=== PATIENT | male | born 1965 | race Caucasian/White ===

== ENCOUNTER → 2019-06-07 | Outpatient (CLI) | payer BC ==
[2019-06-07 10:31] LABS: EOS # 0.2 (0.04-0.40); HEMATOCRIT 48.9 % (42.0-52.0); HEMOGLOBIN 16.3 g/dL (13.5-18.0); LYMPH# 1.3 (1.50-4.00); MEAN CELL VOLUME 95 fl (78-100); MEAN CORPUSCULAR HEMOGLOBIN 32 pg (27-31); MEAN CORPUSCULAR HGB CONC 33 g/dL (33-37); MEAN PLATELET VOLUME 10.1 fl (7.4-10.4); MONO # 0.5 (0.20-0.80); NEU # 5.6 (1.40-6.50); PLATELET COUNT 373 K/mm3 (130-400); RED BLOOD COUNT 5.16 M/mm3 (4.20-5.60); RED CELL DISTRIBUTION WIDTH 14.2 % (11.5-14.5); WHITE BLOOD COUNT 7.6 K/mm3 (4.8-10.8)
[2019-06-07 10:33] LABS: POTASSIUM 3.9 mmol/L (3.5-5.1)
[2019-06-07 10:34] LABS: ALBUMIN 3.9 g/dL (3.5-5.0)
[2019-06-07 10:35] LABS: CALCIUM 8.8 mg/dL (8.3-10.5)
[2019-06-07 10:36] LABS: TOTAL PROTEIN 7.4 g/dL (6.4-8.3)
[2019-06-07 10:38] LABS: TOTAL BILIRUBIN 0.6 mg/dL (0.2-1.2)
== END ==
LOC: LAB 10:07
PROVIDERS: Physician Assistant
DX: Z12.5 Encounter for screening for malignant neoplasm of prostate (principal); Z13.220 Encounter for screening for lipoid disorders; Z76.89 Persons encountering health services in other specified circumstances; I82.409 Acute embolism and thrombosis of unspecified deep veins of unspecified lower extremity; I87.2 Venous insufficiency (chronic) (peripheral); I10 Essential (primary) hypertension; J30.2 Other seasonal allergic rhinitis; J01.90 Acute sinusitis, unspecified; B96.89 Other specified bacterial agents as the cause of diseases classified elsewhere; H66.93 Otitis media, unspecified, bilateral; F41.9 Anxiety disorder, unspecified; Z79.01 Long term (current) use of anticoagulants

== ENCOUNTER → 2020-01-24 | Outpatient (CLI) | payer BC ==
[2020-01-24 11:03] LABS: BASO # 0.1 (0.02-0.10); EOS # 0.3 (0.04-0.40); EOS % 3.5 % (0.0-4.0); HEMATOCRIT 48.1 % (42.0-52.0); HEMOGLOBIN 15.9 g/dL (13.5-18.0); LYMPH# 1.3 (1.50-4.00); MEAN CELL VOLUME 96 fl (78-100); MEAN CORPUSCULAR HEMOGLOBIN 32 pg (27-31); MEAN CORPUSCULAR HGB CONC 33 g/dL (33-37); MEAN PLATELET VOLUME 10.4 fl (7.4-10.4); MONO # 0.6 (0.20-0.80); NEU # 4.8 (1.40-6.50); PLATELET COUNT 360 K/mm3 (130-400); RED CELL DISTRIBUTION WIDTH 13.8 % (11.5-14.5); WHITE BLOOD COUNT 7.1 K/mm3 (4.8-10.8)
[2020-01-24 11:09] LABS: ALBUMIN 3.8 g/dL (3.5-5.0); POTASSIUM 4.1 mmol/L (3.5-5.1)
[2020-01-24 11:11] LABS: CALCIUM 8.4 mg/dL (8.3-10.5)
[2020-01-24 11:12] LABS: TOTAL PROTEIN 7.2 g/dL (6.4-8.3)
[2020-01-24 11:14] LABS: TOTAL BILIRUBIN 0.4 mg/dL (0.2-1.2)
[2020-01-24 11:18] LABS: MAGNESIUM 1.97 mg/dL (1.60-2.60)
[2020-01-24 11:24] LABS: D-DIMER 0.71 mg/L FEU (0.15-0.50)
== END ==
LOC: LAB 10:01
PROVIDERS: Physician Assistant
DX: I82.409 Acute embolism and thrombosis of unspecified deep veins of unspecified lower extremity (principal); I10 Essential (primary) hypertension

== ENCOUNTER → 2020-04-04 | Outpatient (CLI) | payer OTHER | LOC: RAD 09:10 | DX: R07.89 Other chest pain (principal) ==

== ENCOUNTER 2020-06-27 11:18 | Emergency (ER) | payer OTHER ==
[2020-06-27 12:12] LABS: BASO # 0.05 (0.02-0.10); EOS # 0.12 (0.04-0.40); EOS % 1.3 % (0.0-4.0); HEMATOCRIT 50.2 % (42.0-52.0); LYMPH# 1.64 (1.50-4.00); MEAN CELL VOLUME 94 fl (78-100); MEAN CORPUSCULAR HEMOGLOBIN 32 pg (27-31); MEAN CORPUSCULAR HGB CONC 34 g/dL (33-37); MEAN PLATELET VOLUME 9.8 fl (7.4-10.4); NEU # 6.56 (1.40-6.50); PLATELET COUNT 393 K/mm3 (130-400); RED BLOOD COUNT 5.35 M/mm3 (4.20-5.60); RED CELL DISTRIBUTION WIDTH 13.6 % (11.5-14.5)
[2020-06-27 12:20] LABS: POTASSIUM 3.7 mmol/L (3.5-5.1); SODIUM 138 mmol/L (136-145)
[2020-06-27 12:21] LABS: CALCIUM 9.2 mg/dL (8.3-10.5)
[2020-06-27 12:22] LABS: GLUCOSE 100 mg/dL (75-110); TOTAL PROTEIN 7.5 g/dL (6.4-8.3)
[2020-06-27 12:23] LABS: CARBON DIOXIDE 21 mmol/L (22-29)
[2020-06-27 12:27] LABS: AST-SGOT 22 U/L (5-34)
[2020-06-27 12:29] LABS: ALT/SGPT 39 U/L (0-55); LIPASE 21 U/L (8-78)
[2020-06-27 12:30] LABS: D-DIMER 0.39 mg/L FEU (0.15-0.50); PARTIAL THROMBOPLASTIN TIME 23.6 SECONDS (21.0-32.0); PROTHROMBIN TIME 12.4 SECONDS (9.0-12.0)
[2020-06-27 12:35] LABS: TROPONIN-I < 0.03 ng/mL (<0.030)
[2020-06-27 14:40] VITALS: BP 136/72
== END 2020-06-27 14:40 | disposition home or self-care (01) ==
LOC: ED 11:18
PROVIDERS: Nurse Practitioner
DX: F41.9 Anxiety disorder, unspecified (principal); Z91.14 Patient's other noncompliance with medication regimen; I10 Essential (primary) hypertension; Z86.711 Personal history of pulmonary embolism; Z88.8 Allergy status to other drugs, medicaments and biological substances; Z79.01 Long term (current) use of anticoagulants
CPT/HCPCS: J2060; J7030

== ENCOUNTER → 2020-08-27 | Outpatient (CLI) | payer OTHER ==
[2020-08-27 14:55] LABS: BASO # 0.09 (0.02-0.10); EOS # 0.21 (0.04-0.40); HEMATOCRIT 50.4 % (42.0-52.0); HEMOGLOBIN 17.2 g/dL (13.5-18.0); LYMPH# 2.23 (1.50-4.00); MEAN CELL VOLUME 94 fl (78-100); MEAN CORPUSCULAR HEMOGLOBIN 32 pg (27-31); MEAN CORPUSCULAR HGB CONC 34 g/dL (33-37); MEAN PLATELET VOLUME 9.2 fl (7.4-10.4); MONO # 0.82 (0.20-0.80); NEU # 7.29 (1.40-6.50); PLATELET COUNT 413 K/mm3 (130-400); RED BLOOD COUNT 5.38 M/mm3 (4.20-5.60); RED CELL DISTRIBUTION WIDTH 13.4 % (11.5-14.5); WHITE BLOOD COUNT 10.7 K/mm3 (4.8-10.8)
[2020-08-27 15:03] LABS: ALBUMIN 3.9 g/dL (3.5-5.0); POTASSIUM 3.9 mmol/L (3.5-5.1)
[2020-08-27 15:04] LABS: CALCIUM 9.2 mg/dL (8.3-10.5)
[2020-08-27 15:05] LABS: TOTAL PROTEIN 7.8 g/dL (6.4-8.3)
[2020-08-27 15:07] LABS: TOTAL BILIRUBIN 0.7 mg/dL (0.2-1.2)
[2020-08-27 15:13] LABS: MAGNESIUM 1.98 mg/dL (1.60-2.60)
== END ==
LOC: LAB 14:40
PROVIDERS: Physician Assistant
DX: E78.5 Hyperlipidemia, unspecified (principal); K90.9 Intestinal malabsorption, unspecified; R25.2 Cramp and spasm

== ENCOUNTER → 2020-10-22 | Outpatient (CLI) | payer BC ==
[2020-10-22 07:41] LABS: ALBUMIN 3.7 g/dL (3.5-5.0); POTASSIUM 3.8 mmol/L (3.5-5.1)
[2020-10-22 07:42] LABS: CALCIUM 9.2 mg/dL (8.3-10.5)
[2020-10-22 07:43] LABS: TOTAL PROTEIN 7.4 g/dL (6.4-8.3)
[2020-10-22 07:45] LABS: TOTAL BILIRUBIN 0.6 mg/dL (0.2-1.2)
[2020-10-22 07:50] LABS: MAGNESIUM 2.05 mg/dL (1.60-2.60)
== END ==
LOC: LAB 07:13
PROVIDERS: Physician Assistant
DX: K90.9 Intestinal malabsorption, unspecified (principal); R25.2 Cramp and spasm

== ENCOUNTER → 2021-01-01 | Outpatient (CLI) | payer BC ==
[2021-01-01 10:25] LABS: PROTHROMBIN TIME 14.9 SECONDS (9.0-12.0)
== END ==
LOC: LAB 09:16
PROVIDERS: Physician Assistant
DX: I82.409 Acute embolism and thrombosis of unspecified deep veins of unspecified lower extremity (principal)

== ENCOUNTER 2021-10-05 07:20 | Emergency (ER) | payer BC ==
[~2021-10-05] VITALS: Ht 185.4 cm; Wt 197.4 kg
[2021-10-05] MEDS ORDERED: KLONOPIN 1MG1 MG PO (07:56)
[2021-10-05] MEDS ORDERED: VALSARTAN160 M1 PO (07:56)
[2021-10-05] MEDS ORDERED: WARFARIN SODIUM4 MG PO (07:56)
[2021-10-05] MEDS ORDERED: MECLIZINE PO (07:56)
[2021-10-05 08:07] LABS: BASO # 0.06 K/mm3 (0.02-0.10); EOS # 0.16 K/mm3 (0.04-0.40); EOS % 2.1 % (0.0-4.0); HEMATOCRIT 48.5 % (42.0-52.0); HEMOGLOBIN 16.3 g/dL (13.5-18.0); MEAN CELL VOLUME 95 fl (78-100); MEAN CORPUSCULAR HEMOGLOBIN 32 pg (27-31); MEAN CORPUSCULAR HGB CONC 34 g/dL (33-37); MEAN PLATELET VOLUME 9.3 fl (7.4-10.4); MONO # 0.48 K/mm3 (0.20-0.80); NEU # 5.57 K/mm3 (1.40-6.50); PLATELET COUNT 362 K/mm3 (130-400); RED BLOOD COUNT 5.09 M/mm3 (4.20-5.60); RED CELL DISTRIBUTION WIDTH 13.4 % (11.5-14.5); WHITE BLOOD COUNT 7.5 K/mm3 (4.8-10.8)
[2021-10-05 08:14] LABS: URINE WBC 0 /hpf (0-3)
[2021-10-05 08:15] LABS: ALBUMIN 3.8 g/dL (3.5-5.0); POTASSIUM 3.6 mmol/L (3.5-5.1)
[2021-10-05 08:17] LABS: CALCIUM 9.2 mg/dL (8.3-10.5)
[2021-10-05 08:20] LABS: TOTAL BILIRUBIN 0.8 mg/dL (0.2-1.2); TOTAL PROTEIN 7.1 g/dL (6.4-8.3)
[2021-10-05 08:35] LABS: PROTHROMBIN TIME 17.2 SECONDS (9.0-12.0)
[2021-10-05 08:38] LABS: URINE APPEARANCE CLEAR; URINE BILIRUBIN NEGATIVE (NEGATIVE); URINE BLOOD NEGATIVE (NEGATIVE); URINE COLOR YELLOW; URINE GLUCOSE NEGATIVE (NEGATIVE); URINE KETONE NEGATIVE (NEGATIVE); URINE LEUKOCYTE ESTERASE NEGATIVE (NEGATIVE); URINE NITRATE NEGATIVE (NEGATIVE); URINE PROTEIN(semi-quant) NEGATIVE (NEGATIVE); URINE UROBILINOGEN NORMAL (NORMAL)
[2021-10-05 09:45] VITALS: BP 118/72
== END 2021-10-05 09:50 | disposition home or self-care (01) ==
LOC: ED 07:20
PROVIDERS: Nurse Practitioner
DX: F41.9 Anxiety disorder, unspecified (principal); R79.1 Abnormal coagulation profile; R53.81 Other malaise; Z86.711 Personal history of pulmonary embolism; Z20.822 Contact with and (suspected) exposure to COVID-19; Z79.01 Long term (current) use of anticoagulants

== ENCOUNTER → 2021-10-05 | Outpatient (CLI) | payer BC ==
[~2021-10-05] MED LIST: KLONOPIN 1MG1 MG PO; MECLIZINE PO; VALSARTAN160 M1 PO; WARFARIN SODIUM4 MG PO
[2021-10-05 10:09] LABS: MAGNESIUM 1.96 mg/dL (1.60-2.60)
== END ==
LOC: LAB 09:33
PROVIDERS: Physician Assistant
DX: Z12.5 Encounter for screening for malignant neoplasm of prostate (principal); Z00.00 Encounter for general adult medical examination without abnormal findings; K90.9 Intestinal malabsorption, unspecified; I10 Essential (primary) hypertension; Z13.220 Encounter for screening for lipoid disorders; Z13.29 Encounter for screening for other suspected endocrine disorder; R25.2 Cramp and spasm; R60.0 Localized edema; E55.9 Vitamin D deficiency, unspecified; Z13.1 Encounter for screening for diabetes mellitus; Z79.01 Long term (current) use of anticoagulants

== ENCOUNTER 2021-12-28 10:54 | Emergency (ER) | payer BC ==
[~2021-12-28] VITALS: Ht 185.4 cm; Wt 200.0 kg
[~2021-12-28 10:54] MED LIST changes: +FUROSEMIDE20 MG PO; +HYDROXYZINE HCL25 M1 PO; +VITAMIN D350 MCG PO
[2021-12-28 11:19] VITALS: BP 134/96
[2021-12-28] MEDS ORDERED: CHLORHEXIDINE118 ML MM (11:26)
[2021-12-28] MEDS ORDERED: AMOXICILLIN875 MG PO (11:26)
== END 2021-12-28 12:31 | disposition home or self-care (01) ==
LOC: ED 10:54
DX: K02.9 Dental caries, unspecified (principal); Z91.14 Patient's other noncompliance with medication regimen